=== PATIENT | female | born 1970 | race Asian ===

== ENCOUNTER → 2016-12-27 | Outpatient (CLI) | payer BC ==
[~2016-12-27] MED LIST: EPA FISH OIL1000 MG PO; MULTIPLE VITAMI1 CAP PO; PERCOCET 325 MG1 TA2 PO; SKELAXIN 800MG800 MG PO
== END ==
LOC: MC.RAD 09:36
DX: Z12.31 Encounter for screening mammogram for malignant neoplasm of breast (principal)

== ENCOUNTER → 2020-09-22 | Outpatient (CLI) | payer BC | LOC: MC.RAD 09:00 | DX: Z12.31 Encounter for screening mammogram for malignant neoplasm of breast (principal) ==

== ENCOUNTER → 2022-02-11 | Outpatient (CLI) | payer OTHER | LOC: MC.RAD 09:15 | DX: Z12.31 Encounter for screening mammogram for malignant neoplasm of breast (principal) ==

== ENCOUNTER → 2024-04-02 | Outpatient (CLI) | payer OTHER | LOC: MC.RAD 14:05 | DX: Z12.31 Encounter for screening mammogram for malignant neoplasm of breast (principal) ==